=== PATIENT | male | born 1950 | race Caucasian/White ===

== ENCOUNTER 2024-08-10 09:52 | Outpatient (CLI) | payer MEDICARE, SELFPAY ==
--- NOTE | 2024-08-10 10:00 | ECG_ITS ---
Test Date: 2024-08-10 10:23:12 Measurements Intervals [place] Rate: 87 P: 49 [place]: 153 QRS: 44 QRSD: 105 T: 46 QT: 372 QTc: 449 Interpretive Statements SINUS RHYTHM LOW QRS VOLTAGE IN LIMB LEADS POOR R WAVE PROGRESSION BASELINE ARTIFACT- I, II, AVR, AVL, AVF BORDERLINE ECG No previous ECG available for comparison Electronically Signed On 08-10-2024 11:17:10 [employer] by Xander Emerson D.O.
[2024-08-10 11:03] LABS: Anion Gap 10 mmol/L (4-12); Blood Urea Nitrogen 15 mg/dL (9-20); Calcium 8.6 mg/dL (8.4-10.2); Carbon Dioxide 24 mmol/L (22-30); Chloride 105 mmol/L (98-107); Estimated Glomerular Filt Rate > 60; Glucose 144 mg/dL (65-110); Potassium 4.3 mmol/L (3.4-5.0); Sodium 139 mmol/L (137-145)
--- OUTSIDE RECORDS SUMMARY | 2024-08-10 11:17 | XMS_ITS | Referral Summary ---
Author Organization [facility] [address] [facility] Address [address] [place] [address] Care Team Providers Care Meter Engineer Name Role Phone Ritesh Cruz Primary Care Provider [phone] Encounters Date Type Department Care Team Description 06/24/2024 Telephone [facility] Medical [facility] Family Medicine at [address] [address] Ritesh Cruz PA 06/03/2024 Telephone [facility] Family Medicine at [address] [place] [phone] Ritesh Cruz PA Medical Question/Miscellaneous 05/31/2024 9:15 AM GAMES DEALER Office Visit [facility] Medical [facility] Family Medicine at [address] [address] Ritesh Cruz PA Essential hypertension (Primary Dx); 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); Hyperlipidemia, mixed; Left inguinal hernia; Essential hypertension; Paresthesia of both feet 05/19/2024 6:25 AM GAMES DEALER Lab [facility] [address] [place] [address] 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); Essential hypertension; Hyperlipidemia, mixed 05/12/2024 Telephone [facility] Medical [facility] Family Medicine at [address] [place] [address] Ritesh Cruz PA Call Back from Last 3 Months Allergies Active Allergy Reactions Criticality Noted Date Comments Metformin Other (See comments) Low 07/29/2022 GI Upset Medications blood glucose control high,low solutionIndicatio ns:Type 2 diabetes mellitus without complication, without long-term current use of insulin ([facility]) ([facility]) As directed 1 each 0 Active blood-glucose meter miscIndications:T ype 2 diabetes mellitus without complication, without long-term current use of insulin ([facility]) ([facility]) Accu-check marianela plus meter 1 each 0 Active lancets miscIndications:T ype 2 diabetes mellitus without complication, without long-term current use of insulin ([facility]) ([facility]) Daily before Breakfast. Accu-chek softclix lancet 100 each 3 0 Active blood glucose diagnostic stripIndications: Type 2 diabetes mellitus without complication, without long-term current use of insulin ([facility]) ([facility]) Daily before breakfast. 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 Assessment & Plan (02/13/2024 9:30 AM CDT): Chronic conditions stable well controlled at goal Continue amlodipine. Assessment & Plan (11/04/2023 9:10 AM CDT): Chronic conditions stable well controlled at goal Continue amlodipine. Assessment & Plan (05/20/2023 9:26 AM GAMES DEALER): Chronic conditions stable well controlled at goal Continue amlodipine. 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 ([facility]) 09/29/2020 Assessment & Plan (05/31/2024 9:25 AM GAMES DEALER): Chronic uncontrolled with side effects of jardiance D/c jardiance per patient Start mounjaro Assessment & Plan (02/13/2024 9:31 AM CDT): Chronic stable A1c at goal Continue Farxiga Assessment & Plan (11/04/2023 9:04 AM CDT): Chronic and not at goal Start farxiga 5mg Assessment & Plan (05/20/2023 9:27 AM GAMES DEALER): Chronic stable well controlled Continue lifestyle modifications A1c ago Assessment & Plan (02/06/2023 9:26 AM CDT): Chronic condition stable A1c at goal Continue diet lifestyle modifications Assessment & Plan (11/03/2022 9:48 PM CDT): Chronic condition stable A1c at goal Continue diet lifestyle modifications Assessment & Plan (07/29/2022 9:05 AM GAMES DEALER): Chronic stable and well Controlled Continue Hyperlipidemia, mixed 09/29/2020 Assessment & Plan (05/31/2024 9:23 AM GAMES DEALER): Chronic condition stable Hdl at goal Continue repatha D/c zetia Assessment & Plan (02/13/2024 9:31 AM CDT): Chronic condition not at goal Continue Zetia Start Repatha Assessment & Plan (11/04/2023 9:10 AM CDT): Chronic and improved Not at goal Patient refuses statin therapy Continue zetia and red yeast rice Assessment & Plan (05/20/2023 9:27 AM GAMES DEALER): Chronic condition not at goal Continue Zetia Patient refuses to use statin out of fear of side effects. This is even after explanation of reduced cardiovascular events in diabetics on statin presented. Assessment & Plan (02/06/2023 9:26 AM CDT): Chronic condition stable well controlled Continue ezetimibe Assessment & Plan (10/31/2022 9:52 AM CDT): Chronic and not at goal Start zetia Immunizations Immunization Administration Dates Next Due Influenza, Quadrivalent, Hig h Dose, Preservative Free, Intrr 07/29/2022(Deferred: Patient Refused) Influenza, Unspecified 05/31/2024(Deferr ed: Patient Refused),05/20/2023(Deferred: Patient decision),02/20/2022(Deferred: Patient decision),02/20/2022(Deferred: Patient decision),02/14/2022(Deferred: Patient decision) Moderna SARS-CoV-2 Monovalen t Vaccination (12+ YRS) 09/01/2020,08/04/2020 Pneumococcal Conjugate PCV 13 01/23/2019 Pneumococcal Polysaccharide PPV23 01/27/2020 Social History Tobacco Use Types Packs/Day Years Used Date Smoking Tobacco: Never Smokeless Tobacco: Never Alcohol Use Standard Drinks/Week Comments Yes 0 (1 standard drink = 0.6 oz pur e alcohol) maybe once a week Humiliation, Afraid, Rape, and Kick questionnair e Answer Date Recorded Within the last year, have y ou been afraid of your partner or ex-partner? No 04/04/2021 Within the last year, have y ou been humiliated or emotionally abused in other ways by your partner or ex-partner? No Within the last year, have y ou been kicked, hit, slapped, or otherwise physically hurt by your partner or ex-partner? No 04/04/2021 Within the last year, have y ou been raped or forced to have any kind of sexual activity by your partner or ex-partner? No 04/04/2021 Social Connection and Isolation Panel [NHANES] A nswer Date Recorded In a typical week, how many times do you talk on the phone with family, friends, or neighbors? Never 04/04/2021 How often do you get together with friends or re latives? Once a week 04/04/2021 How often do you attend yazidism or shinto serv ices? Never 04/04/2021 Do you belong to any clubs o r organizations such as yazidism groups, unions, fraternal or athletic groups, or school groups? No 04/04/2021 How often do you attend meet ings of the clubs or organizations you belong to? Never 04/04/2021 Are you , , di vorced, , never , or living with a partner? 04/04/2021 AUDIT-C Answer Date Recorded Q1: How often do you have a drink containing alcohol? Never 05/31/2024 Q2: How many drinks containi ng alcohol do you have on a typical day when you are drinking? Patient does not drink Q3: How often do you have si x or more drinks on one occasion? Never 05/31/2024 Overall Financial Resource Strain (CARDIA) Answe r Date Recorded How hard is it for you to pa y for the very basics like food, housing, medical care, and heating? Not hard at all 04/04/2021 PHQ-2 Answer Date Recorded PHQ-2 Total Score (If total score is 3 or more points, staff should administer the PHQ-9) 0 11/04/2023 [facility] - Occupational Stress Questionnaire Answer Date Recorded Do you feel stress - tense, restless, nervous, or anxious, or unable to sleep at night because your mind is troubled all the time - these days? Not at all 04/04/2021 Exercise Vital Sign Answer Date Recorde d On average, how many days pe r week do you engage in moderate to strenuous exercise (like a brisk walk)? 0 days 04/04/2021 On average, how many minutes do you engage in exercise at this level? 0 min 04/04/2021 Hunger Vital Sign Answer Date Recorded Within the past 12 months, y ou worried that your food would run out before you got the money to buy more. Never true 04/04/20 Within the past 12 months, t he food you bought just didn't last and you didn't have money to get more. Never true 04/04/2021 PRAPARE - Transportation Answer Date Re corded In the past 12 months, has l ack of transportation kept you from medical appointments or from getting medications? No 03/17 In the past 12 months, has l ack of transportation kept you from meetings, work, or from getting things needed for daily living? No 04/04/2021 Education Answer Date Recorded What is the highest level of school you have completed or the highest degree you have received? Some college, no degree 11/25/2019 Sex and Gender Information Value Date Recorded Sex Assigned at Not on file Legal Sex Male 8:59 AM GAMES DEALER Gender Identity Male 06/26/2020 12:11 PM GAMES DEALER Sexual Orientation Straight 06/26/2020 12 :11 PM GAMES DEALER Occupation Industry Job Start Date Job End Date Retired Not on file Not on file Not on file Last Filed Vital Signs Vital Sign Reading Time Taken Comments Blood Pressure 126/76 05/31/2024 8:43 AM GAMES DEALER Pulse 103 05/31/2024 8:43 AM GAMES DEALER Temperature 36.5 C (97.7 F) 05/31/2024 8:43 AM GAMES DEALER Respiratory Rate 20 05/31/2024 8:43 AM GAMES DEALER Oxygen Saturation 97% 05/31/2024 8:43 AM GAMES DEALER Inhaled Oxygen Concentration - - Weight 78.2 kg (172 lb 8 oz) 05/31/2024 8:43 AM GAMES DEALER Height 175.3 cm (5' 9.02 ) 05/31/2024 8:43 AM CS T Body Mass Index 25.46 05/31/2024 8:43 AM GAMES DEALER Plan of Treatment Not on file Procedures Procedure Name Priority Date/Time Associated Diagnosis Comments EGFR Routine 05/19/2024 6:34 AM GAMES DEALER 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) Essential hypertension Hyperlipidemia, mixed DIFFERENTIAL AUTO Routine 05/19/2024 6:3 4 AM GAMES DEALER 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) Essential hypertension Hyperlipidemia, mixed COMPREHENSIVE METABOLIC PANEL Routine 05/19/2024 6:34 AM GAMES DEALER 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) Essential hypertension Hyperlipidemia, mixed LIPID PANEL Routine 05/19/2024 6:34 AM GAMES DEALER 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) Essential hypertension Hyperlipidemia, mixed HEMOGLOBIN A1C Routine 05/19/2024 6:34 AM GAMES DEALER 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) Essential hypertension Hyperlipidemia, mixed CBC WITH AUTO DIFFERENTIAL Routine 05/19/2024 6:34 AM GAMES DEALER 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) Essential hypertension Hyperlipidemia, mixed ALBUMIN CREATININE RATIO, URINE Routine 11/04/2023 9:18 AM CDT Type 2 diabetes mellitus without complication, without long-term current use of insulin (CMS/HCC) (HCC) 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 73 m2 Comment: Interpretive Data Reference Interval Normal >/= 90 mL/min/1.73m2 Mildly decreased* 60 - 89 mL/min/1.73m2 Mildly to moderately decreased 45 - 59 mL/min/1.73m2 Moderately to severely decreased 30 - 44 mL/min/1.73m2 Severely decreased 15 - 29 mL/min/1.73m2 Kidney Failure < 15 mL/min/1.73m2 *Relative to young adult level Estimated glomerular filtration rate is determined by the 2020 CKD-EPI equation recommended by the National Kidney Foundation (A Unifying Approach to GFR Estimation: Recommendations of the NKF-ASK Task Force on Reassessing the Inclusion of Race in Diagnosing Kidney Disease, JASN 2020). The CKD-EPI equation should not be used for patients with unstable renal function and has not been validated in children and those over 70. Current interpretive data was last reviewed 2021. Blood 05/19/2024 6:34 AM GAMES DEALER 05/19/2024 6:42 AM GAMES DEALER us Ritesh HERRERA LAB BLOOD ORDERABLES Final Resu lt STACY [address] [facility] Department [place] [address] * Differential, auto (05/19/2024 6:34 AM GAMES DEALER) Neutrophil abs 5.0 1.5 - 6.5 K/cumm Imm gran abs 0.1 0.0 - 0.1 K/cumm [facility] Lymphocyte abs 2.8 0.8 - 3.3 K/cumm STACY Monocyte abs 0.5 0.2 - 0.8 K/cumm [facility] Eosinophil abs 0.2 0.0 - 0.5 K/cumm [facility] Basophil abs 0.1 0.0 - 0.1 K/cumm [facility] Neutrophil pct 58.0 % [facility] Comment: Interpretive Data Percent cell count reference ranges are not reported, since discordance with absolute values may lead to misinterpretation of CBC data. Current Interpretive Data was last revised on 2017. Imm gran pct 0.6 % [facility] Comment: Interpretive Data Percent cell count reference ranges are not reported, since discordance with absolute values may lead to misinterpretation of CBC data. Current Interpretive Data was last revised on 2017. Lymphocyte pct 32.5 % [facility] Comment: Interpretive Data Percent cell count reference ranges are not reported, since discordance with absolute values may lead to misinterpretation of CBC data. Current Interpretive Data was last revised on 2017. Monocyte pct 5.9 % [facility] Comment: Interpretive Data Percent cell count reference ranges are not reported, since discordance with absolute values may lead to misinterpretation of CBC data. Current Interpretive Data was last revised on 2017. Eosinophil pct 2.3 % [facility] Comment: Interpretive Data Percent cell count reference ranges are not reported, since discordance with absolute values may lead to misinterpretation of CBC data. Current Interpretive Data was last revised on 2017. Basophil pct 0.7 % [facility] Comment: Interpretive Data Percent cell count reference ranges are not reported, since discordance with absolute values may lead to misinterpretation of CBC data. Current Interpretive Data was last revised on 2017. Blood 05/19/2024 6:34 AM GAMES DEALER 05/19/2024 6:42 AM GAMES DEALER us Ritesh HERRERA LAB BLOOD ORDERABLES Final Resu lt STACY GALLARDO [address] [facility] Department of Laboratories [place], [place] [id number] * (ABNORMAL) CBC with auto differential (05/19/2024 6:34 AM GAMES DEALER) WBC 8.6 3.8 - 9.9 K/cumm Hgb 18.4(H) 13.0 - 17.5 g/dL [facility] Hct 53.1(H) 38.9 - 50.3 % [facility] Plt 284 150 - 400 K/cumm [facility] MPV 9.7 9.1 - 12.3 fL [facility] RBC 5.83(H) 4.30 - 5.80 M/cumm [facility] MCV 91.1 81.3 - 96.4 fL [facility] MCH 31.6 27.1 - 33.3 pg [facility] MCHC 34.7 32.3 - 35.7 g/dL [facility] RDW CV 13.4 11.1 - 14.9 % [facility] RDW SD 44.8 35.7 - 48.1 fL [facility] NRBC abs 0.00 0.00 - 0.01 K/cumm [facility] Blood 05/19/2024 6:34 AM GAMES DEALER 05/19/2024 6:42 AM GAMES DEALER us Ritesh HERRERA LAB BLOOD ORDERABLES Final Resu lt Performing Organization Address [facility] de Phone Number [address] [employer] [place], [place] [phone] * (ABNORMAL) Hemoglobin A1c (05/19/2024 6:34 AM GAMES DEALER) Hgb A1C 6.7(H) 4.0 - 5.6 % Estimated Average Glucose 146 mg/dL [facility] Comment: The ADA recommends reporting an estimated Average Glucose (eAG) with all Hemoglobin A1c results using the equation derived from a study of 507 normal and diabetic adults. Minority populations were underrepresented and children were not included. (Diabetes Care 31:4184-9940, 2008). The eAG is not equivalent to a fasting glucose. Blood 05/19/2024 6:34 AM GAMES DEALER 05/19/2024 6:42 AM GAMES DEALER us Ritesh HERRERA LAB BLOOD ORDERABLES Final Resu lt Performing Organization Address [facility] Co de Phone Number [facility] [address] Department [place] [address] * (ABNORMAL) Lipid panel (05/19/2024 6:34 AM GAMES DEALER) [facility] Signature Cholesterol 104 30 - 199 mg/dL Comment: Interpretive Data Ages < or = 19 years Acceptable: <170 mg/dL Borderline high: 170-199 mg/dL High: >or= 200 mg/dL Ages > or = 20 years Desirable: <200 mg/dL Borderline high: 200-239 mg/dL High: >or= 240 mg/dL Literature References: 1. Expert Panel on Integrated Guidelines for Cardiovascular Health and Risk Reduction in Children and Adolescents. Pediatrics 2011;128:S213 2. NCEP Expert Panel. Circulation 2004;110:227 Current Interpretive Data was last revised on 2018. Triglycerides 263(H) <=149 mg/dL STACY GALLARDO Comment: Interpretive Data Ages < or = 9 years Acceptable: <75 mg/dL Borderline high: 75-99 mg/dL High: >or= 100 mg/dL Ages 10 to 20 years Acceptable: <90 mg/dL Borderline high: 90-129 mg/dL High: >or= 130 mg/dL Ages > or = 20 years Desirable: <150 mg/dL Borderline high: 150-199 mg/dL High: 200-499 mg/dL Very high: >or= 499 mg/dL Literature References: 1. Expert Panel on Integrated Guidelines for Cardiovascular Health and Risk Reduction in Children and Adolescents. Pediatrics 2011;128:S213 2. NCEP Expert Panel. Circulation 2004;110:227 Current Interpretive Data was last revised on 2018. HDL 49 >=40 mg/dL STACY Comment: Interpretive Data Ages < or = 19 years Acceptable: >45 mg/dL Borderline low: 40-45 mg/dL Low: <40 mg/dL Ages > or = 20 years Desirable: >or= 60 mg/dL Low: <40 mg/dL Literature References: 1. Expert Panel on Integrated Guidelines for Cardiovascular Health and Risk Reduction in Children and Adolescents. Pediatrics 2011;128:S213 2. NCEP Expert Panel. Circulation 2004;110:227 Current Interpretive Data was last revised on 2018. LDL, calculated 17 <=129 mg/dL STACY Comment: Interpretive Data Ages < or = 19 years Acceptable: <110 mg/dL Borderline high: 110-129 mg/dL High: >or= 130 mg/dL Ages > or = 20 years Optimal: <100 mg/dL Near optimal: 100-129 mg/dL Borderline high: 130-159 mg/dL High: >160 mg/dL Calculated using the Sherman LDL-C estimating equation. This equation was implemented on 2024. Prior to this date LDL-C was estimated using the Friedewald equation. Literature References: 1. Expert Panel on Integrated Guidelines for Cardiovascular Health and Risk Reduction in Children and Adolescents. Pediatrics 2011;128:S213 2. NCEP Expert Panel. Circulation 2004;110:227 3. Sherman M et al. FLACA Cardiol. 2020 October 14;5(5):540-548. doi: 10.1001/jamacardio.2020.0013 Current Interpretive Data was last revised on 2024. Non-HDL Cholesterol 55 mg/dL STACY GALLARDO Comment: Interpretive Data Ages < or = 19 years Acceptable: <120 mg/dL Borderline high: 120-144 mg/dL High: >145 mg/dL Ages > or = 20 years When triglycerides are >200 mg/dL, Non-HDL cholesterol is a secondary target of therapy with treatment goals that are 30 mg/dL greater than the LDL cholesterol target. Literature References: 1. Expert Panel on Integrated Guidelines for Cardiovascular Health and Risk Reduction in Children and Adolescents. Pediatrics 2011;128:S213 2. NCEP Expert Panel. Circulation 2004;110:227 Current Interpretive Data was last revised on 2018. Chol/HDL ratio 2 STACY GALLARDO Blood 05/19/2024 6:34 AM GAMES DEALER 05/19/2024 6:42 AM GAMES DEALER us Ritesh HERRERA LAB BLOOD ORDERABLES Final Resu lt STACY GALLARDO [address] [facility] Department [place] [address] * Comprehensive metabolic panel (05/19/2024 6:34 AM GAMES DEALER) Sodium 139 135 - 145 mmol/L Potassium, pl 4.2 3.3 - 4.9 mmol/L [facility] Chloride 102 97 - 110 mmol/L [facility] CO2 27 22 - 32 mmol/L [facility] Anion gap 10 2 - 15 mmol/L [facility] BUN 10 6 - 25 mg/dL [facility] Creatinine 1.07 0.80 - 1.30 mg/dL [facility] Glucose 151 70 - 199 mg/dL [facility] Comment: Interpretive Data Fasting glucose >/= 126 mg/dl is diagnostic for diabetes. Fasting is defined as no caloric intake for at least 8 hours. Fasting glucose between 100 mg/dl to 125 mg/dl is diagnostic of prediabetes. In a patient with classic symptoms of hyperglycemia or hyperglycemic crisis, a random glucose >/= 200 mg/dl is diagnostic for diabetes. In the absence of unequivocal hyperglycemia, results should be confirmed by repeat testing. The classification and Diagnosis of Diabetes Diabetes Care 202; 46: S19-S40. Current interpretive data was last revised 2022. Calcium 9.2 8.5 - 10.3 mg/dL [facility] Bilirubin, total 0.5 0.1 - 1.2 mg/dL [facility] Protein, pl 6.8 6.5 - 8.5 g/dL [facility] Albumin 4.0 3.5 - 5.0 g/dL [facility] Alk phos 82 40 - 130 Units/L [facility] ALT 23 7 - 55 Units/L [facility] AST 19 10 - 50 Units/L [facility] Blood 05/19/2024 6:34 AM GAMES DEALER 05/19/2024 6:42 AM GAMES DEALER us Ritesh HERRERA LAB BLOOD ORDERABLES Final Resu lt [facility] [address] [facility] Department [place] [address] * Albumin Creatinine Ratio, Urine (11/04/2023 9:18 AM CDT) Albumin Ur 14.3 mg/L Comment: Interpretive Data No reference range established. Current interpretive data was last revised 2018. Creatinine Ur 150.0 mg/dL [facility] Comment: Interpretive Data No reference range established. Current interpretive data was last revised 2018. Albumin Creatinine Ratio, Ur 10 1 - 29 mg/g STACY Urine 11/04/2023 9:18 AM CDT 11/04/2023 12:39 PM CDT Ritesh HERRERA LAB URINE ORDERABLES Final Resu lt Performing Organization Address City/[facility] Co de Phone Number [address] [place] [address] * PSA screen (10/07/2023 6:47 AM CDT) PSA-Total 4.51 <=6.20 ng/mL Comment: Interpretive Data AGE SEX REFERENCE INTERVAL 0 minutes-150 years Female None 0 minutes-49 years Male None 50-59 years Male 0-3.90 60-69 years Male 0-5.40 70-79 years Male 0-6.20 80-150 years Male 0-6.20 The Shashank PSA Total assay procedure was used. Results from different manufacturers or methods may not be comparable. Serial testing should be performed using the same method. Current interpretive data last revised 21. Blood 10/07/2023 6:47 AM CDT 10/07/2023 6:52 AM CDT Ritesh HERRERA LAB BLOOD ORDERABLES Final Resu lt Performing Organization Address City/[facility] Co de Phone Number [address] [address] * Diabetic Eye Exam (03/26/2023) Historical Provider HEALTH MAINTENANCE Final Result * Hepatitis C antibody (11/29/2019 6:59 AM CDT) Pathologist [facility] Hep C Ab NONREACT NONREACTIVE [facility] Comment: Siemens ToonTimeaurXP using JEANNETTE (chemiluminescent immunoassay) technology. NONREACTIVE: Antibodies to Hepatitis C not detected. This does not exclude early acute Hepatitis C infection, possibility of exposure to Hepatitis C, antibodies below detection limit, or to lack of antibody reactivity to the antigen used in this assay. EQUIVOCAL: Antibodies to Hepatitis C may or may not be present. Sample to be confirmed by real-time PCR method. REACTIVE: Antibodies to Hepatitis C detected.Sample to be confirmed by real-time PCR method. Blood specimen (specimen) 11/29/2019 6:59 AM CDT 11/29/2019 7:08 AM CDT Narrative Resulting Agency Comment CLI Nick Peña MD LAB MICROBIOLOGY - GENERAL BRITTANIE MOORE Final Result [address] [address], [facility] [phone] from Last 3 Months or Most Recently Relevant to Health Maintenance Insurance [employer] MEDICARE HMO [employer]ICE MEDICARE O HU[employer] MEDICARE HMO Care Teams Meter Engineer Relationship Specialty Start Date End Date Ritesh Cruz PA PCP - General Family Medicine 04/23/22
--- OUTSIDE RECORDS SUMMARY | 2024-08-10 11:17 | XMS_ITS | Clinical Summary ---
Author Organization [address] Address [address] [place] [address] Care Team Providers Care Supervisor [employer] Name Role Phone Ritesh Cruz Primary Care Provider [phone] Allergies Active Allergy Reactions Criticality Noted Date Comments Metformin Other (See comments) Low 07/29/2022 GI Upset Medications blood glucose control high,low solutionIndicatio ns:Type 2 diabetes mellitus without complication, without long-term current use of insulin ([facility]) ([facility]) As directed 1 each 0 Active blood-glucose meter miscIndications:T ype 2 diabetes mellitus without complication, without long-term current use of insulin ([facility]) ([facility]) Accu-check marianela plus meter 1 each 0 Active lancets miscIndications:T ype 2 diabetes mellitus without complication, without long-term current use of insulin ([facility]) ([facility]) Daily before Breakfast. Accu-chek softclix lancet 100 each 3 0 Active blood glucose diagnostic stripIndications: Type 2 diabetes mellitus without complication, without long-term current use of insulin ([facility]) ([facility]) Daily before breakfast. Accu-check marianela plus test [...] with CKD stage 2 and hypertension (CMS/HCC) ([facility]) Inject 0.5 mL (2.5 mg total) under the skin every 7 days 2 mL 2 5 Active Active Problems Problem Noted Date Diagnosed Date Paresthesia of both feet 10/31/2022 Assessment & Plan (10/31/2022 9:58 AM CDT): Chronic not well controlled Start gapabentin 300mg qhs Essential hypertension 09/29/2020 Assessment & Plan (05/31/2024 9:23 AM CUSTOMER QUALITY SPECIALIST): Chronic conditions stable well controlled at goal Continue amlodipine. Assessment & Plan (02/13/2024 9:30 AM CDT): Chronic conditions stable well controlled at goal Continue amlodipine. Assessment & Plan (11/04/2023 9:10 AM CDT): Chronic conditions stable well controlled at goal Continue amlodipine. Assessment & Plan (05/20/2023 9:26 AM CUSTOMER QUALITY SPECIALIST): Chronic conditions stable well controlled at goal Continue amlodipine. 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 (CMS /HCC) 09/29/2020 Assessment & Plan (05/31/2024 9:25 AM CUSTOMER QUALITY SPECIALIST): Chronic uncontrolled with side effects of jardiance D/c jardiance per patient Start mounjaro Assessment & Plan (02/13/2024 9:31 AM CDT): Chronic stable A1c at goal Continue Farxiga Assessment & Plan (11/04/2023 9:04 AM CDT): Chronic and not at goal Start farxiga 5mg Assessment & Plan (05/20/2023 9:27 AM CUSTOMER QUALITY SPECIALIST): Chronic stable well controlled Continue lifestyle modifications A1c ago Assessment & Plan (02/06/2023 9:26 AM CDT): Chronic condition stable A1c at goal Continue diet lifestyle modifications Assessment & Plan (11/03/2022 9:48 PM CDT): Chronic condition stable A1c at goal Continue diet lifestyle modifications Assessment & Plan (07/29/2022 9:05 AM CUSTOMER QUALITY SPECIALIST): Chronic stable and well Controlled Continue Hyperlipidemia, mixed 09/29/2020 Assessment & Plan (05/31/2024 9:23 AM CUSTOMER QUALITY SPECIALIST): Chronic condition stable Hdl at goal Continue repatha D/c zetia Assessment & Plan (02/13/2024 9:31 AM CDT): Chronic condition not at goal Continue Zetia Start Repatha Assessment & Plan (11/04/2023 9:10 AM CDT): Chronic and improved Not at goal Patient refuses statin therapy Continue zetia and red yeast rice Assessment & Plan (05/20/2023 9:27 AM CUSTOMER QUALITY SPECIALIST): Chronic condition not at goal Continue Zetia Patient refuses to use statin out of fear of side effects. This is even after explanation of reduced cardiovascular events in diabetics on statin presented. Assessment & Plan (02/06/2023 9:26 AM CDT): Chronic condition stable well controlled Continue ezetimibe Assessment & Plan (10/31/2022 9:52 AM CDT): Chronic and not at goal Start zetia Encounters Date Type Department Care Team Description 06/24/2024 Telephone [facility] Medical [facility] Family Medicine at [address] [address] Ritesh Cruz PA 06/03/2024 Telephone [facility] Family Medicine at [address] [address] Ritesh Cruz PA Medical Question/Miscellaneous 05/31/2024 9:15 AM CUSTOMER QUALITY SPECIALIST Office Visit [facility] Medicine at [address] [address] Ritesh Cruz PA Essential hypertension (Primary Dx); 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 ([facility]/HCC) (HCC); Hyperlipidemia, mixed; Left inguinal hernia; Essential hypertension; Paresthesia of both feet 05/19/2024 6:25 AM CUSTOMER QUALITY SPECIALIST Lab [facility] Lab [address] [place] [address] 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 ([facility]) ([facility]); Essential hypertension; Hyperlipidemia, mixed 05/12/2024 Telephone [facility] Medicine at [address] [address] Ritesh Cruz PA Call Back from Last 3 Months Immunizations Immunization Administration Dates Next Due Influenza, Quadrivalent, Hig h Dose, Preservative Free, Intrr 07/29/2022(Deferred: Patient Refused) Influenza, Unspecified 05/31/2024(Deferr ed: Patient Refused),05/20/2023(Deferred: Patient decision),02/20/2022(Deferred: Patient decision),02/20/2022(Deferred: Patient decision),02/14/2022(Deferred: Patient decision) Moderna SARS-CoV-2 Monovalen t Vaccination (12+ YRS) 09/01/2020,08/04/2020 Pneumococcal Conjugate PCV 13 01/23/2019 Pneumococcal Polysaccharide PPV23 01/27/2020 Family History Medical History Relation Name Comments No Known Problems Daughter 1 No Known Problems Daughter 2 Gout Father Stroke Father No Known Problems Maternal Grandfather No Known Problems Maternal Grandmother Brain cancer Mother Breast cancer Mother Stroke Mother No Known Problems Paternal Grandfather No Known Problems Paternal Grandmother No Known Problems Son Relation Name Status Comments Daughter 1 Alive Daughter 2 Alive Father Maternal Grandfather Maternal Grandmother Mother Paternal Grandfather Paternal Grandmother Son Alive Social History Tobacco Use Types Packs/Day Years [...] week 04/04/2021 How often do you attend yazidi or confucianism serv ices? Never 04/04/2021 Do you belong to any clubs o r organizations such as yazidi groups, unions, fraternal or athletic groups, or [...] staff should administer the PHQ-9) 0 11/04/2023 [facility] - Occupational Stress Questionnaire Answer Date [...] on file Legal Sex Male 8:59 AM CUSTOMER QUALITY SPECIALIST Gender Identity Male 06/26/2020 12:11 PM CUSTOMER QUALITY SPECIALIST Sexual Orientation Straight 06/26/2020 12 :11 PM CUSTOMER QUALITY SPECIALIST Occupation Industry Job Start Date Job End Date Retired Not on file Not on file Not on file Obstetrics History Last Filed Vital Signs Vital Sign Reading Time Taken Comments Blood Pressure 126/76 05/31/2024 8:43 AM CUSTOMER QUALITY SPECIALIST Pulse 103 05/31/2024 8:43 AM CUSTOMER QUALITY SPECIALIST Temperature 36.5 C (97.7 F) 05/31/2024 8:43 AM CUSTOMER QUALITY SPECIALIST Respiratory Rate 20 05/31/2024 8:43 AM CUSTOMER QUALITY SPECIALIST Oxygen Saturation 97% 05/31/2024 8:43 AM CUSTOMER QUALITY SPECIALIST Inhaled Oxygen Concentration - - Weight 78.2 kg (172 lb 8 oz) 05/31/2024 8:43 AM CUSTOMER QUALITY SPECIALIST Height 175.3 cm (5' 9.02 ) 05/31/2024 8:43 AM CS T Body Mass Index 25.46 05/31/2024 8:43 AM CUSTOMER QUALITY SPECIALIST Plan of Treatment Health Maintenance Due Date Last Done Comments Foot Exam 1950 DTaP/Tdap/Td Vaccine (1 - Tdap) 1961 Hepatitis B Screening 1968 Zoster Vaccine (1 of 2) 2000 Covid-19 Vaccine (3 - season) 2024 09/01/2020, 08/04/2020 Dilated Eye Exam 03/26/2024 03/26/2023, 06/2021, 05/27/2020 Albumin Creatinine Ratio, Urine 11/03/2024 11/04/2023, 08/01/2022 Depression Screening 11/03/2024 11/04/2023, 10/31/2022, 03/12/2022, Additional history exists Fall Risk Assessment 11/03/2024 11/04/2023, 10/31/2022, 03/12/2022, Additional history exists Well Visit 65+ 11/03/2024 11/04/2023, 10/14, 04/04/2021, Additional history exists Hemoglobin A1C 11/17/2024 05/19/2024, 01/14, 10/07/2023, Additional history exists Influenza Vaccine (#1) 2024 Postp oned from 02/15/2024 (Patient declined, but will receive in the future) Lipid Panel 05/19/2025 05/19/2024, 01/14, 10/07/2023, Additional history exists eGFR 05/19/2025 05/19/2024, 01/14, 10/07/2023, Additional history exists Hepatitis C Screening Completed 11/29/2019 Pneumococcal vaccine 65+ Completed 01/27/2020, 01/14 Prostate Cancer Screening-PSA Discontinued 10/07/2023, 08/01/2022, 05/21/2021, Additional history exists Colon Cancer Screening-Colonoscopy Discontinued Procedures Procedure Name Priority Date/Time Associated Diagnosis Comments EGFR Routine 05/19/2024 6:34 AM CUSTOMER QUALITY SPECIALIST 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) Essential hypertension Hyperlipidemia, mixed DIFFERENTIAL AUTO Routine 05/19/2024 6:3 4 AM CUSTOMER QUALITY SPECIALIST 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) Essential hypertension Hyperlipidemia, mixed COMPREHENSIVE METABOLIC PANEL Routine 05/19/2024 6:34 AM CUSTOMER QUALITY SPECIALIST 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) Essential hypertension Hyperlipidemia, mixed LIPID PANEL Routine 05/19/2024 6:34 AM CUSTOMER QUALITY SPECIALIST 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 73 m2 Comment: [...] last reviewed 2021. Blood 05/19/2024 6:34 AM CUSTOMER QUALITY SPECIALIST 05/19/2024 6:42 AM CUSTOMER QUALITY SPECIALIST us Ritesh HERRERA LAB BLOOD ORDERABLES Final Resu lt STACY GALLARDO [id number] [facility] Department [place] [address] * Differential, auto (05/19/2024 6:34 AM CUSTOMER QUALITY SPECIALIST) Neutrophil abs 5.0 1.5 - 6.5 K/cumm Imm gran abs 0.1 0.0 - 0.1 K/cumm STACY Lymphocyte abs 2.8 0.8 - 3.3 K/cumm [facility] Monocyte abs 0.5 0.2 - 0.8 K/cumm [facility] Eosinophil abs 0.2 0.0 - 0.5 K/cumm [facility] Basophil abs 0.1 0.0 - 0.1 K/cumm [facility] Neutrophil pct 58.0 % [facility] Comment: Interpretive Data Percent cell count reference ranges are not reported, since discordance with absolute values may lead to misinterpretation of CBC data. Current Interpretive Data was last revised on 2017. Imm gran pct 0.6 % [facility] Comment: Interpretive Data Percent cell count reference ranges are not reported, since discordance with absolute values may lead to misinterpretation of CBC data. Current Interpretive Data was last revised on 2017. Lymphocyte pct 32.5 % [facility] Comment: Interpretive Data Percent cell count reference ranges are not reported, since discordance with absolute values may lead to misinterpretation of CBC data. Current Interpretive Data was last revised on 2017. Monocyte pct 5.9 % [facility] Comment: Interpretive Data Percent cell count reference ranges are not reported, since discordance with absolute values may lead to misinterpretation of CBC data. Current Interpretive Data was last revised on 2017. Eosinophil pct 2.3 % [facility] Comment: Interpretive Data Percent cell count reference ranges are not reported, since discordance with absolute values may lead to misinterpretation of CBC data. Current Interpretive Data was last revised on 2017. Basophil pct 0.7 % [facility] Comment: Interpretive Data Percent cell count reference ranges are not reported, since discordance with absolute values may lead to misinterpretation of CBC data. Current Interpretive Data was last revised on 2017. Blood 05/19/2024 6:34 AM CUSTOMER QUALITY SPECIALIST 05/19/2024 6:42 AM CUSTOMER QUALITY SPECIALIST us Ritesh HERRERA LAB BLOOD ORDERABLES Final Resu lt STACY [address] [facility] [place] [address] * (ABNORMAL) CBC with auto differential (05/19/2024 6:34 AM CUSTOMER QUALITY SPECIALIST) WBC 8.6 3.8 - 9.9 K/cumm Hgb 18.4(H) 13.0 - 17.5 g/dL [facility] Hct 53.1(H) 38.9 - 50.3 % [facility] Plt 284 150 - 400 K/cumm [facility] MPV 9.7 9.1 - 12.3 fL [facility] RBC 5.83(H) 4.30 - 5.80 M/cumm [facility] MCV 91.1 81.3 - 96.4 fL [facility] MCH 31.6 27.1 - 33.3 pg [facility] MCHC 34.7 32.3 - 35.7 g/dL [facility] RDW CV 13.4 11.1 - 14.9 % [facility] RDW SD 44.8 35.7 - 48.1 fL [facility] NRBC abs 0.00 0.00 - 0.01 K/cumm [facility] Blood 05/19/2024 6:34 AM CUSTOMER QUALITY SPECIALIST 05/19/2024 6:42 AM CUSTOMER QUALITY SPECIALIST us Ritesh HERRERA LAB BLOOD ORDERABLES Final Resu lt STACY [facility] Department [place] [address] * (ABNORMAL) Hemoglobin A1c (05/19/2024 6:34 AM CUSTOMER QUALITY SPECIALIST) Pathologist [facility] Hgb A1C 6.7(H) 4.0 - 5.6 % Estimated Average Glucose 146 mg/dL [facility] Comment: The ADA recommends reporting an estimated Average Glucose (eAG) with all Hemoglobin A1c results using the equation derived from a study of 507 normal and diabetic adults. Minority populations were underrepresented and children were not included. (Diabetes Care 31:8626-1751, 2008). The eAG is not equivalent to a fasting glucose. Blood 05/19/2024 6:34 AM CUSTOMER QUALITY SPECIALIST 05/19/2024 6:42 AM CUSTOMER QUALITY SPECIALIST us Ritesh HERRERA LAB BLOOD ORDERABLES Final Resu lt STACY [address] [facility] [place] [address] * (ABNORMAL) Lipid panel (05/19/2024 6:34 AM CUSTOMER QUALITY SPECIALIST) Cholesterol 104 30 - 199 mg/dL Comment: [...] on 2018. Triglycerides 263(H) <=149 mg/dL STACY Comment: Interpretive Data Ages < [...] 2018. LDL, calculated 17 <=129 mg/dL STACY GALLARDO Comment: Interpretive Data Ages [...] NCEP Expert Panel. Circulation 2004;110:227 3. Sherman Raza et al. FLACA Cardiol. 2019October 14;5(5):540-548. doi: 10.1001/jamacardio.2020.0013 Current Interpretive Data was [...] revised on 2018. Chol/HDL ratio 2 STACY Blood 05/19/2024 6:34 AM CUSTOMER QUALITY SPECIALIST 05/19/2024 6:42 AM CUSTOMER QUALITY SPECIALIST us Ritesh HERRERA LAB BLOOD ORDERABLES Final Resu lt STACY [address] [facility] Department [place] [address] * Comprehensive metabolic panel (05/19/2024 6:34 AM CUSTOMER QUALITY SPECIALIST) Sodium 139 135 - 145 mmol/L Potassium, pl 4.2 3.3 - 4.9 mmol/L [facility] Chloride 102 97 - 110 mmol/L [facility] CO2 27 22 - 32 mmol/L [facility] Anion gap 10 2 - 15 mmol/L [facility] BUN 10 6 - 25 mg/dL [facility] Creatinine 1.07 0.80 - 1.30 mg/dL [facility] Glucose 151 70 - 199 mg/dL [facility] Comment: Interpretive Data Fasting glucose >/= 126 [...] classification and Diagnosis of Diabetes Diabetes Care 2021; 46: S19-S40. Current interpretive data was last revised 2022. Calcium 9.2 8.5 - 10.3 mg/dL [facility] Bilirubin, total 0.5 0.1 - 1.2 mg/dL [facility] Protein, pl 6.8 6.5 - 8.5 g/dL [facility] Albumin 4.0 3.5 - 5.0 g/dL [facility] Alk phos 82 40 - 130 Units/L [facility] ALT 23 7 - 55 Units/L [facility] AST 19 10 - 50 Units/L [facility] Blood 05/19/2024 6:34 AM CUSTOMER QUALITY SPECIALIST 05/19/2024 6:42 AM CUSTOMER QUALITY SPECIALIST us Ritesh HERRERA LAB BLOOD ORDERABLES Final Resu lt [facility] [address] [facility] Department [place] [address] * Albumin Creatinine Ratio, Urine (11/04/2023 9:18 AM CDT) [facility] Albumin Ur 14.3 mg/L Comment: Interpretive Data No reference range established. Current interpretive data was last revised 2018. Creatinine Ur 150.0 mg/dL [facility] Comment: Interpretive Data No reference range established. Current interpretive data was last revised 2018. Albumin Creatinine Ratio, Ur 10 1 - 29 mg/g [facility] Urine 11/04/2023 9:18 AM CDT 11/04/2023 12:39 PM CDT Ritesh HERRERA LAB URINE ORDERABLES Final Resu lt Performing Organization Address [facility] de Phone Number [address] [place] [address] * PSA screen (10/07/2023 6:47 AM CDT) [...] ORDERABLES Final Resu lt Performing Organization Address [facility] de Phone Number [address] [place] [address] * Diabetic Eye Exam (03/26/2023) Historical Provider HEALTH MAINTENANCE Final Result * Hepatitis C antibody (11/29/2019 6:59 AM CDT) Hep C Ab NONREACT NONREACTIVE [facility] Comment: Siemens AdTribaurX using JEANNETTE (chemiluminescent immunoassay) technology. NONREACTIVE: Antibodies [...] MICROBIOLOGY - GENERAL BRITTANIE MOORE Final Result [address] [address], [facility] [phone] from Last 3 Months or Most Recently Relevant to Health Maintenance Insurance [employer] MEDICARE HMO [place] MEDICARE O [employer] MEDICARE HMO [place] [id number] Care Teams Supervisor [employer] Relationship Specialty Start Date End Date Ritesh Cruz PA PCP - General Family Medicine 04/23/22
== END 2024-08-10 09:53 | disposition home or self-care (01) ==
LOC: ANHSURGERY 09:57
PROVIDERS: Anesthesiology; PCP Family Medicine; Visit Provider Surgery
DX: K40.90 Unilateral inguinal hernia, without obstruction or gangrene, not specified as recurrent (principal); I10 Essential (primary) hypertension; E11.9 Type 2 diabetes mellitus without complications
CPT/HCPCS: 36415; 80048; 86850; 86900; 86901; 93005

== ENCOUNTER 2024-08-20 00:35 | Day surgery (SDC) | payer MEDICARE, SELFPAY ==
[2024-08-05 14:59] VITALS: BMI 24.4
--- NOTE | 2024-08-05 15:13 | PC.NURSE ---
Report to the Outpatient Waiting Room, entrance under the green pavilion located off [facility], at time __8:30AM on date ___08/20/24____. Planned Procedure Time: ___10:30AM .? Time changes happen often and if your time is changed the preop area will call you the afternoon before. - You and your visitor will be asked to self-screen and do not enter if you have any COVID symptoms. Please call surgeon if you need to reschedule. - A mask is optional within the hospital at this time. Patients may have clear liquids (water, carbonated beverages, clear teas, apple juice) until 3 hours prior to surgery (7:30AM) with a maximum of 20 ounces. - No food from midnight until time of surgery and no smoking, or chewing tobacco (or any form of nicotine). No chewing gum, candy or mints. Take only the following medications with a SIP of water on the morning of surgery: ___AMLODIPINE DO NOT STOP ANY OF YOUR OTHER PRESCRIPTION MEDICATIONS PRIOR TO SURGERY EXCEPT THE FOLLOWING Hold all vitamins and supplements for 3 days per anesthesiologist.-LAST DOSE 08/16/24. Please no make-up, nail korean, hairspray, perfume, deodorant, or body powder the day of surgery.? No jewelry (including any body piercings) or valuables the day of surgery, leave them at home.? Please take a shower or bath the night before, or the morning of, surgery with an antibacterial soap.? Wear comfortable, loose fitting clothing.? - Jewelry must be removed prior to entering the operating room.? Rings and piercings that are not removed may be cut off. - The hospital will not accept responsibility for valuables.? - Please leave all valuables, including medications, at home the day of surgery. If you are going home after surgery, a licensed sales route driver must drive you home.? - NO public transportation without another adult if you receive anesthesia. - We recommend that an adult stay with you for 24 hours following discharge. - We also recommend that you do not drive, make important decision, drink alcoholic beverages, or take any drugs that were not prescribed by your health care provider for at least 24 hours after your discharge time. Follow any additional instructions given to you from your surgeon. Telephone instructions given to ____PATIENT and asked if any additional questions and then verbalized understanding. Patient advised to call surgeon office or pre surgery nurse liaison [phone] if any additional questions.
[2024-08-20] VITALS (7 sets, daily range): BP systolic 132–150; BP diastolic 72–87; PULSE 86–100; RESP 11–18; TEMP 36.3–36.4; O2SAT 94–99
--- OUTSIDE RECORDS SUMMARY | 2024-08-20 00:39 | XMS_ITS | Referral Summary ---
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); Essential hypertension; Hyperlipidemia, mixed 06/24/2024 Telephone [facility] Family Medicine at [address] [place] [phone] Ritesh Cruz PA 06/03/2024 Telephone [facility] Family Medicine at [address] [phone] Ritesh Cruz PA Medical Question/Miscellaneous 05/31/2024 9:15 AM PHILANTHROPY OFFICER Office Visit [facility] Medical [facility] Family Medicine at [address] [phone] Ritesh Cruz PA Essential hypertension (Primary Dx); 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); Hyperlipidemia, mixed; Left inguinal hernia; Essential hypertension; Paresthesia of both feet from Last 3 Months Allergies Active Allergy Reactions Criticality Noted Date Comments Metformin Other (See comments) Low 07/29/2022 GI Upset Medications blood glucose control high,low solutionIndicatio ns:Type 2 diabetes mellitus without complication, without long-term current use of insulin ([facility]) As directed 1 each 0 Active blood-glucose meter miscIndications:T ype 2 diabetes mellitus without complication, without long-term current use of insulin ([facility]) Accu-check marianela plus meter 1 each 0 Active lancets miscIndications:T ype 2 diabetes mellitus without complication, without long-term current use of insulin ([facility]) Daily before Breakfast. Accu-chek softclix lancet 100 each 3 0 Active blood glucose diagnostic stripIndications: Type 2 diabetes mellitus without complication, without long-term current use of insulin ([facility]) Daily before breakfast. Accu-check marianela plus test [...] DM with CKD stage 2 and hypertension ([facility]) Inject 0.5 mL (2.5 mg total) under the skin every 7 days 2 mL 2 5 Active Active Problems Problem Noted Date Diagnosed Date Paresthesia of both feet 10/31/2022 Assessment & Plan (10/31/2022 9:58 AM CDT): Chronic not well controlled Start gapabentin 300mg qhs Essential hypertension 09/29/2020 Assessment & Plan (05/31/2024 9:23 AM PHILANTHROPY OFFICER): Chronic conditions stable well controlled at goal Continue amlodipine. Assessment & Plan (02/13/2024 9:30 AM CDT): Chronic conditions stable well controlled at goal Continue amlodipine. Assessment & Plan (11/04/2023 9:10 AM CDT): Chronic conditions stable well controlled at goal Continue amlodipine. Assessment & Plan (05/20/2023 9:26 AM PHILANTHROPY OFFICER): Chronic conditions stable well controlled at goal Continue amlodipine. 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 09/14 Assessment & Plan (05/31/2024 9:25 AM PHILANTHROPY OFFICER): Chronic uncontrolled with side effects of jardiance D/c jardiance per patient Start mounjaro Assessment & Plan (02/13/2024 9:31 AM CDT): Chronic stable A1c at goal Continue Farxiga Assessment & Plan (11/04/2023 9:04 AM CDT): Chronic and not at goal Start farxiga 5mg Assessment & Plan (05/20/2023 9:27 AM PHILANTHROPY OFFICER): Chronic stable well controlled Continue lifestyle modifications A1c ago Assessment & Plan (02/06/2023 9:26 AM CDT): Chronic condition stable A1c at goal Continue diet lifestyle modifications Assessment & Plan (11/03/2022 9:48 PM CDT): Chronic condition stable A1c at goal Continue diet lifestyle modifications Assessment & Plan (07/29/2022 9:05 AM PHILANTHROPY OFFICER): Chronic stable and well Controlled Continue Hyperlipidemia, mixed 09/29/2020 Assessment & Plan (05/31/2024 9:23 AM PHILANTHROPY OFFICER): Chronic condition stable Hdl at goal Continue repatha D/c zetia Assessment & Plan (02/13/2024 9:31 AM CDT): Chronic condition not at goal Continue Zetia Start Repatha Assessment & Plan (11/04/2023 9:10 AM CDT): Chronic and improved Not at goal Patient refuses statin therapy Continue zetia and red yeast rice Assessment & Plan (05/20/2023 9:27 AM PHILANTHROPY OFFICER): Chronic condition not at goal Continue Zetia [...] week 04/04/2021 How often do you attend orthodoxy or zoroastrianism serv ices? Never 04/04/2021 Do you belong to any clubs o r organizations such as orthodoxy groups, unions, fraternal or athletic groups, or [...] staff should administer the PHQ-9) 0 11/04/2023 [facility] - Occupational Stress Questionnaire Answer Date Recorded [...] money to buy more. Never true 04/04/20 21 Within the past 12 months, t he [...] on file Legal Sex Male 8:59 AM PHILANTHROPY OFFICER Gender Identity Male 06/26/2020 12:11 PM PHILANTHROPY OFFICER Sexual Orientation Straight 06/26/2020 12 :11 PM PHILANTHROPY OFFICER Occupation Industry Job Start Date Job End Date Retired Not on file Not on file Not on file Last Filed Vital Signs Vital Sign Reading Time Taken Comments Blood Pressure 126/76 05/31/2024 8:43 AM PHILANTHROPY OFFICER Pulse 103 05/31/2024 8:43 AM PHILANTHROPY OFFICER Temperature 36.5 C (97.7 F) 05/31/2024 8:43 AM PHILANTHROPY OFFICER Respiratory Rate 20 05/31/2024 8:43 AM PHILANTHROPY OFFICER Oxygen Saturation 97% 05/31/2024 8:43 AM PHILANTHROPY OFFICER Inhaled Oxygen Concentration - - Weight 78.2 kg (172 lb 8 oz) 05/31/2024 8:43 AM PHILANTHROPY OFFICER Height 175.3 cm (5' 9.02 ) 05/31/2024 8:43 AM CS T Body Mass Index 25.46 05/31/2024 8:43 AM PHILANTHROPY OFFICER Plan of Treatment Not on file Procedures Procedure Name Priority Date/Time Associated Diagnosis Comments EGFR Routine 08/16/2024 6:59 AM PHILANTHROPY OFFICER Essential hypertension 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) Hyperlipidemia, mixed DIFFERENTIAL AUTO Routine 08/16/2024 6:5 9 AM PHILANTHROPY OFFICER Essential hypertension 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) Hyperlipidemia, mixed CBC WITH AUTO DIFFERENTIAL Routine 08/16/2024 6:59 AM PHILANTHROPY OFFICER Essential hypertension 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) Hyperlipidemia, mixed COMPREHENSIVE METABOLIC PANEL Routine 08/16/2024 6:59 AM PHILANTHROPY OFFICER Essential hypertension 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) Hyperlipidemia, mixed LIPID PANEL Routine 08/16/2024 6:59 AM PHILANTHROPY OFFICER Essential hypertension 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) Hyperlipidemia, mixed HEMOGLOBIN A1C Routine 08/16/2024 6:59 AM PHILANTHROPY OFFICER 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) ALBUMIN CREATININE RATIO, URINE Routine 11/04/2023 9:18 AM CDT Type 2 diabetes mellitus without complication, without long-term current use of insulin (HCC) 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 73 m2 Comment: Interpretive Data [...] interpretive data was last reviewed 2021. Blood 08/16/2024 6:59 AM PHILANTHROPY OFFICER 08/16/2024 7:26 AM PHILANTHROPY OFFICER us Ritesh HERRERA LAB BLOOD ORDERABLES Final Resu lt [facility] [address] Department [place] [address] * Differential, auto (08/16/2024 6:59 AM PHILANTHROPY OFFICER) Pathologist [facility] Neutrophil abs 6.0 1.5 - 6.5 K/cumm Imm gran abs 0.0 0.0 - 0.1 K/cumm [facility] Lymphocyte abs 2.6 0.8 - 3.3 K/cumm [facility] Monocyte abs 0.6 0.2 - 0.8 K/cumm [facility] Eosinophil abs 0.1 0.0 - 0.5 K/cumm [facility] Basophil abs 0.1 0.0 - 0.1 K/cumm [facility] Neutrophil pct 64.0 % [facility] Comment: Interpretive Data Percent cell count reference ranges are not reported, since discordance with absolute values may lead to misinterpretation of CBC data. Current Interpretive Data was last revised on 2017. Imm gran pct 0.4 % [facility] Comment: Interpretive Data Percent cell count reference ranges are not reported, since discordance with absolute values may lead to misinterpretation of CBC data. Current Interpretive Data was last revised on 2017. Lymphocyte pct 27.8 % [facility] Comment: Interpretive Data Percent cell count reference ranges are not reported, since discordance with absolute values may lead to misinterpretation of CBC data. Current Interpretive Data was last revised on 2017. Monocyte pct 5.9 % [facility] Comment: Interpretive Data Percent cell count reference ranges are not reported, since discordance with absolute values may lead to misinterpretation of CBC data. Current Interpretive Data was last revised on 2017. Eosinophil pct 1.2 % [facility] Comment: Interpretive Data Percent cell count reference ranges are not reported, since discordance with absolute values may lead to misinterpretation of CBC data. Current Interpretive Data was last revised on 2017. Basophil pct 0.7 % [facility] Comment: Interpretive Data Percent cell count reference ranges are not reported, since discordance with absolute values may lead to misinterpretation of CBC data. Current Interpretive Data was last revised on 2017. Blood 08/16/2024 6:59 AM PHILANTHROPY OFFICER 08/16/2024 7:26 AM PHILANTHROPY OFFICER us Ritesh HERRERA LAB BLOOD ORDERABLES Final Resu lt [facility] [address] Department of Laboratories [place], [place] [id number] * CBC with auto differential (08/16/2024 6:59 AM PHILANTHROPY OFFICER) WBC 9.4 3.8 - 9.9 K/cumm Hgb 17.3 13.0 - 17.5 g/dL [facility] Hct 49.6 38.9 - 50.3 % [facility] Plt 307 150 - 400 K/cumm [facility] MPV 9.8 9.1 - 12.3 fL [facility] RBC 5.44 4.30 - 5.80 M/cumm [facility] MCV 91.2 81.3 - 96.4 fL [facility] MCH 31.8 27.1 - 33.3 pg [facility] MCHC 34.9 32.3 - 35.7 g/dL [facility] RDW CV 13.1 11.1 - 14.9 % [facility] RDW SD 43.2 35.7 - 48.1 fL [facility] NRBC abs 0.00 0.00 - 0.01 K/cumm [facility] Blood 08/16/2024 6:59 AM PHILANTHROPY OFFICER 08/16/2024 7:26 AM PHILANTHROPY OFFICER Ritesh HERRERA LAB BLOOD ORDERABLES Final Resu lt Performing Organization Address [facility] de Phone Number [address] [address] * (ABNORMAL) Hemoglobin A1c (08/16/2024 6:59 AM PHILANTHROPY OFFICER) Hgb A1C 6.2(H) 4.0 - 5.6 % Estimated Average Glucose 131 mg/dL [facility] Comment: The ADA recommends reporting an estimated Average Glucose (eAG) with all Hemoglobin A1c results using the equation derived from a study of 507 normal and diabetic adults. Minority populations were underrepresented and children were not included. (Diabetes Care 31:8864-8431, 2008). The eAG is not equivalent to a fasting glucose. Blood 08/16/2024 6:59 AM PHILANTHROPY OFFICER 08/16/2024 7:26 AM PHILANTHROPY OFFICER us Ritesh HERRERA LAB BLOOD ORDERABLES Final Resu lt Performing Organization Address [facility] de Phone Number [address] [address] * (ABNORMAL) Lipid panel (08/16/2024 6:59 AM PHILANTHROPY OFFICER) Cholesterol 99 30 - 199 mg/dL Comment: Interpretive Data [...] Data was last revised on 2018. Triglycerides 182(H) <=149 mg/dL [facility] Comment: Interpretive Data Ages [...] Data was last revised on 2018. HDL 40 >=40 mg/dL [facility] Comment: Interpretive Data Ages [...] was last revised on 2018. LDL, calculated 30 <=129 mg/dL [facility] Comment: Interpretive Data Ages [...] was last revised on 2024. Non-HDL Cholesterol 59 mg/dL [facility] Comment: Interpretive Data Ages < [...] last revised on 2018. Chol/HDL ratio 2 [facility] Blood 08/16/2024 6:59 AM PHILANTHROPY OFFICER 08/16/2024 7:26 AM PHILANTHROPY OFFICER us Ritesh HERRERA LAB BLOOD ORDERABLES Final Resu lt [facility] [address] Department [place] [address] * (ABNORMAL) Comprehensive metabolic panel (08/16/2024 6:59 AM PHILANTHROPY OFFICER) Sodium 140 135 - 145 mmol/L Potassium, pl 4.3 3.3 - 4.9 mmol/L [facility] Chloride 105 97 - 110 mmol/L [facility] CO2 23 22 - 32 mmol/L [facility] Anion gap 12 2 - 15 mmol/L [facility] BUN 12 6 - 25 mg/dL [facility] Creatinine 1.09 0.80 - 1.30 mg/dL [facility] Glucose 137 70 - 199 mg/dL [facility] Comment: Interpretive Data Fasting glucose >/= 126 [...] interpretive data was last revised 2022. Calcium 8.4(L) 8.5 - 10.3 mg/dL [facility] Bilirubin, total 0.5 0.1 - 1.2 mg/dL [facility] Protein, pl 6.2(L) 6.5 - 8.5 g/dL [facility] Albumin 3.6 3.5 - 5.0 g/dL [facility] Alk phos 74 40 - 130 Units/L [facility] ALT 11 7 - 55 Units/L [facility] AST 16 10 - 50 Units/L [facility] Blood 08/16/2024 6:59 AM PHILANTHROPY OFFICER 08/16/2024 7:26 AM PHILANTHROPY OFFICER us Ritesh HERRERA LAB BLOOD ORDERABLES Final Resu lt Performing Organization Address [facility] Co de Phone Number [address] [place] [address] * Albumin Creatinine Ratio, Urine (11/04/2023 9:18 AM CDT) Albumin Ur 14.3 mg/L Comment: Interpretive Data No reference range established. Current interpretive data was last revised 2018. Creatinine Ur 150.0 mg/dL [facility] Comment: Interpretive Data No reference range established. Current interpretive data was last revised 2018. Albumin Creatinine Ratio, Ur 10 1 - 29 mg/g [facility] Urine 11/04/2023 9:18 AM CDT 11/04/2023 12:39 PM CDT us Ritesh HERRERA LAB URINE ORDERABLES Final Resu lt Performing Organization Address [facility] Co de Phone Number [address] [place] [address] * PSA screen (10/07/2023 6:47 AM CDT) [...] ORDERABLES Final Resu lt Performing Organization Address City/[facility]/ZIP Co de Phone Number [facility] [address] [place] [address] * Diabetic Eye Exam (03/26/2023) Du Provider HEALTH MAINTENANCE Final Result * Hepatitis C antibody (11/29/2019 6:59 AM CDT) Pathologist [facility] Hep C Ab NONREACT NONREACTIVE [facility] Comment: Siemens CentaurXP using JEANNETTE (chemiluminescent immunoassay) technology. NONREACTIVE: Antibodies [...] MICROBIOLOGY - GENERAL BRITTANIE MOORE Final Result Performing Organization Address City/[facility]/ZIP Co de Phone Number [address] [address], [facility] [phone] from Last 3 Months or Most Recently Relevant to Health Maintenance Insurance [employer] HMO Care Teams Fuel Technician Relationship Specialty Start Date End Date Ritesh Cruz PA PCP - General Family Medicine 04/23/22
--- OUTSIDE RECORDS SUMMARY | 2024-08-20 00:39 | XMS_ITS | Clinical Summary ---
Author Organization [address] Address [address] [place] [address] Care Team Providers Care Shipping Clerk/Admin Name Role Phone Ritesh Cruz Primary Care Provider Allergies Active Allergy Reactions Criticality Noted Date Comments Metformin Other (See comments) Low 07/29/2022 GI Upset Medications blood glucose control high,low solutionIndicatio ns:Type 2 diabetes mellitus without complication, without long-term current use of insulin (HCC) As directed 1 each 0 Active blood-glucose meter miscIndications:T ype 2 diabetes mellitus without complication, without long-term current use of insulin (HCC) Accu-check marianela plus meter 1 each 0 Active lancets miscIndications:T ype 2 diabetes mellitus without complication, without long-term current use of insulin (HCC) Daily before Breakfast. Accu-chek softclix lancet 100 each 3 0 Active blood glucose diagnostic stripIndications: Type 2 diabetes mellitus without complication, without long-term current use of insulin (HCC) Daily before breakfast. Accu-check marianela plus test [...] with CKD stage 2 and hypertension (HCC) Inject 0.5 mL (2.5 mg total) under the skin every 7 days 2 mL 2 5 Active Active Problems Problem Noted Date Diagnosed Date Paresthesia of both feet 10/31/2022 Assessment & Plan (10/31/2022 9:58 AM CDT): Chronic not well controlled Start gapabentin 300mg qhs Essential hypertension 09/29/2020 Assessment & Plan (05/31/2024 9:23 AM GAMING WORKER): Chronic conditions stable well controlled at goal Continue amlodipine. Assessment & Plan (02/13/2024 9:30 AM CDT): Chronic conditions stable well controlled at goal Continue amlodipine. Assessment & Plan (11/04/2023 9:10 AM CDT): Chronic conditions stable well controlled at goal Continue amlodipine. Assessment & Plan (05/20/2023 9:26 AM GAMING WORKER): Chronic conditions stable well controlled at goal Continue amlodipine. 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 09/14 Assessment & Plan (05/31/2024 9:25 AM GAMING WORKER): Chronic uncontrolled with side effects of jardiance D/c jardiance per patient Start mounjaro Assessment & Plan (02/13/2024 9:31 AM CDT): Chronic stable A1c at goal Continue Farxiga Assessment & Plan (11/04/2023 9:04 AM CDT): Chronic and not at goal Start farxiga 5mg Assessment & Plan (05/20/2023 9:27 AM GAMING WORKER): Chronic stable well controlled Continue lifestyle modifications A1c ago Assessment & Plan (02/06/2023 9:26 AM CDT): Chronic condition stable A1c at goal Continue diet lifestyle modifications Assessment & Plan (11/03/2022 9:48 PM CDT): Chronic condition stable A1c at goal Continue diet lifestyle modifications Assessment & Plan (07/29/2022 9:05 AM GAMING WORKER): Chronic stable and well Controlled Continue Hyperlipidemia, mixed 09/29/2020 Assessment & Plan (05/31/2024 9:23 AM GAMING WORKER): Chronic condition stable Hdl at goal Continue repatha D/c zetia Assessment & Plan (02/13/2024 9:31 AM CDT): Chronic condition not at goal Continue Zetia Start Repatha Assessment & Plan (11/04/2023 9:10 AM CDT): Chronic and improved Not at goal Patient refuses statin therapy Continue zetia and red yeast rice Assessment & Plan (05/20/2023 9:27 AM GAMING WORKER): Chronic condition not at goal Continue Zetia [...] Department Care Team Description 08/16/2024 6:35 AM GAMING WORKER Lab [facility] [address] [place] [address] 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); Essential hypertension; Hyperlipidemia, mixed 06/24/2024 Telephone [facility] Family Medicine at [address] [place] [address] Ritesh Cruz PA 06/03/2024 Telephone [facility] Family Medicine at [address] [place] [address] Ritesh Cruz PA Medical Question/Miscellaneous 05/31/2024 9:15 AM GAMING WORKER Office Visit [facility] Medicine at [address] [place] [address] Ritesh Cruz PA Essential hypertension (Primary Dx); 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 Never 04/04/2021 Do you belong to any clubs o r organizations such as congregational groups, unions, fraternal or athletic groups, or [...] staff should administer the PHQ-9) 0 11/04/2023 [facility] - Occupational Stress Questionnaire Answer Date Recorded [...] on file Legal Sex Male 8:59 AM GAMING WORKER Gender Identity Male 06/26/2020 12:11 PM GAMING WORKER Sexual Orientation Straight 06/26/2020 12 :11 PM GAMING WORKER Occupation Industry Job Start Date Job End Date Retired Not on file Not on file Not on file Obstetrics History Last Filed Vital Signs Vital Sign Reading Time Taken Comments Blood Pressure 126/76 05/31/2024 8:43 AM GAMING WORKER Pulse 103 05/31/2024 8:43 AM GAMING WORKER Temperature 36.5 C (97.7 F) 05/31/2024 8:43 AM GAMING WORKER Respiratory Rate 20 05/31/2024 8:43 AM GAMING WORKER Oxygen Saturation 97% 05/31/2024 8:43 AM GAMING WORKER Inhaled Oxygen Concentration - - Weight 78.2 kg (172 lb 8 oz) 05/31/2024 8:43 AM GAMING WORKER Height 175.3 cm (5' 9.02 ) 05/31/2024 8:43 AM CS T Body Mass Index 25.46 05/31/2024 8:43 AM GAMING WORKER Plan of Treatment Health Maintenance Due Date [...] 11/03/2024 11/04/2023, 10/14, 04/04/2021, Additional history exists Influenza Vaccine (#1) 2024 Postp oned from 02/15/2024 (Patient declined, but will receive in the future) Hemoglobin A1C 02/16/2025 08/16/2024, 09/2023, 01/28/2024, Additional history exists Lipid Panel 08/16/2025 08/16/2024, 09/2023, 01/28/2024, Additional history exists eGFR 08/16/2025 08/16/2024, 09/2023, 01/28/2024, Additional history exists Hepatitis C Screening Completed 11/29/2019 Pneumococcal vaccine 65+ Completed 01/27/2020, 01/14 Prostate Cancer Screening-PSA Discontinued 10/07/2023, 08/01/2022, 05/21/2021, Additional history exists Colon Cancer Screening-Colonoscopy Discontinued Procedures Procedure Name Priority Date/Time Associated Diagnosis Comments EGFR Routine 08/16/2024 6:59 AM GAMING WORKER Essential hypertension 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) Hyperlipidemia, mixed DIFFERENTIAL AUTO Routine 08/16/2024 6:5 9 AM GAMING WORKER Essential hypertension 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) Hyperlipidemia, mixed CBC WITH AUTO DIFFERENTIAL Routine 08/16/2024 6:59 AM GAMING WORKER Essential hypertension 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 73 m2 Comment: [...] of Race in Diagnosing Kidney Disease, JASN 202). The CKD-EPI equation should not be used for patients with unstable renal function and has not been validated in children and those over 70. Current interpretive data was last reviewed 2021. Blood 08/16/2024 6:59 AM GAMING WORKER 08/16/2024 7:26 AM GAMING WORKER us Ritesh HERRERA LAB BLOOD ORDERABLES Final Resu lt [facility] [address] Department [place] [address] * Differential, auto (08/16/2024 6:59 AM GAMING WORKER) Pathologist [facility] Neutrophil abs 6.0 1.5 - 6.5 K/cumm Imm gran abs 0.0 0.0 - 0.1 K/cumm [facility] Lymphocyte abs 2.6 0.8 - 3.3 K/cumm [facility] Monocyte abs 0.6 0.2 - 0.8 K/cumm [facility] Eosinophil abs 0.1 0.0 - 0.5 K/cumm [facility] Basophil abs 0.1 0.0 - 0.1 K/cumm [facility] Neutrophil pct 64.0 % [facility] Comment: Interpretive Data Percent cell count reference ranges are not reported, since discordance with absolute values may lead to misinterpretation of CBC data. Current Interpretive Data was last revised on 2017. Imm gran pct 0.4 % [facility] Comment: Interpretive Data Percent cell count reference ranges are not reported, since discordance with absolute values may lead to misinterpretation of CBC data. Current Interpretive Data was last revised on 2017. Lymphocyte pct 27.8 % [facility] Comment: Interpretive Data Percent cell count reference ranges are not reported, since discordance with absolute values may lead to misinterpretation of CBC data. Current Interpretive Data was last revised on 2017. Monocyte pct 5.9 % [facility] Comment: Interpretive Data Percent cell count reference ranges are not reported, since discordance with absolute values may lead to misinterpretation of CBC data. Current Interpretive Data was last revised on 2017. Eosinophil pct 1.2 % [facility] Comment: Interpretive Data Percent cell count reference ranges are not reported, since discordance with absolute values may lead to misinterpretation of CBC data. Current Interpretive Data was last revised on 2017. Basophil pct 0.7 % [facility] Comment: Interpretive Data Percent cell count reference ranges are not reported, since discordance with absolute values may lead to misinterpretation of CBC data. Current Interpretive Data was last revised on 2017. Blood 08/16/2024 6:59 AM GAMING WORKER 08/16/2024 7:26 AM GAMING WORKER us Ritesh HERRERA LAB BLOOD ORDERABLES Final Resu lt [facility] [address] Department of Laboratories [place], [place] [id number] * CBC with auto differential (08/16/2024 6:59 AM GAMING WORKER) WBC 9.4 3.8 - 9.9 K/cumm Hgb 17.3 13.0 - 17.5 g/dL [facility] Hct 49.6 38.9 - 50.3 % [facility] Plt 307 150 - 400 K/cumm [facility] MPV 9.8 9.1 - 12.3 fL [facility] RBC 5.44 4.30 - 5.80 M/cumm [facility] MCV 91.2 81.3 - 96.4 fL [facility] MCH 31.8 27.1 - 33.3 pg [facility] MCHC 34.9 32.3 - 35.7 g/dL [facility] RDW CV 13.1 11.1 - 14.9 % [facility] RDW SD 43.2 35.7 - 48.1 fL [facility] NRBC abs 0.00 0.00 - 0.01 K/cumm [facility] Blood 08/16/2024 6:59 AM GAMING WORKER 08/16/2024 7:26 AM GAMING WORKER Ritesh HERRERA LAB BLOOD ORDERABLES Final Resu lt Performing Organization Address [facility] de Phone Number [address] [address] * (ABNORMAL) Hemoglobin A1c (08/16/2024 6:59 AM GAMING WORKER) Hgb A1C 6.2(H) 4.0 - 5.6 % Estimated Average Glucose 131 mg/dL [facility] Comment: The ADA recommends reporting an estimated Average Glucose (eAG) with all Hemoglobin A1c results using the equation derived from a study of 507 normal and diabetic adults. Minority populations were underrepresented and children were not included. (Diabetes Care 31:9711-9768, 2008). The eAG is not equivalent to a fasting glucose. Blood 08/16/2024 6:59 AM GAMING WORKER 08/16/2024 7:26 AM GAMING WORKER Ritesh HERRERA LAB BLOOD ORDERABLES Final Resu lt Performing Organization Address [facility] de Phone Number [address] [place] [address] * (ABNORMAL) Lipid panel (08/16/2024 6:59 AM GAMING WORKER) Cholesterol 99 30 - 199 mg/dL Comment: [...] mg/dL High: >160 mg/dL Calculated using the Whitaker LDL-C estimating equation. This equation was implemented [...] revised on 2024. Non-HDL Cholesterol 59 mg/dL [facility] Comment: Interpretive Data Ages < or = [...] last revised on 2018. Chol/HDL ratio 2 [facility] Blood 08/16/2024 6:59 AM GAMING WORKER 08/16/2024 7:26 AM GAMING WORKER us Ritesh HERRERA LAB BLOOD ORDERABLES Final Resu lt [facility] [address] Department [place] [address] * (ABNORMAL) Comprehensive metabolic panel (08/16/2024 6:59 AM GAMING WORKER) Sodium 140 135 - 145 mmol/L Potassium, pl 4.3 3.3 - 4.9 mmol/L [facility] Chloride 105 97 - 110 mmol/L [facility] CO2 23 22 - 32 mmol/L [facility] Anion gap 12 2 - 15 mmol/L [facility] BUN 12 6 - 25 mg/dL [facility] Creatinine 1.09 0.80 - 1.30 mg/dL [facility] Glucose 137 70 - 199 mg/dL [facility] Comment: Interpretive Data Fasting glucose >/= 126 [...] 2022. Calcium 8.4(L) 8.5 - 10.3 mg/dL [facility] Bilirubin, total 0.5 0.1 - 1.2 mg/dL [facility] Protein, pl 6.2(L) 6.5 - 8.5 g/dL [facility] Albumin 3.6 3.5 - 5.0 g/dL [facility] Alk phos 74 40 - 130 Units/L [facility] ALT 11 7 - 55 Units/L [facility] AST 16 10 - 50 Units/L [facility] Blood 08/16/2024 6:59 AM GAMING WORKER 08/16/2024 7:26 AM GAMING WORKER us Ritesh HERRERA LAB BLOOD ORDERABLES Final Resu lt Performing Organization Address [facility] de Phone Number [address] [employer] [place], [place] [id number] * Albumin Creatinine Ratio, Urine (11/04/2023 9:18 AM CDT) Albumin Ur 14.3 mg/L Comment: Interpretive Data No reference range established. Current interpretive data was last revised 2018. Creatinine Ur 150.0 mg/dL [facility] Comment: Interpretive Data No reference range established. Current interpretive data was last revised 2018. Albumin Creatinine Ratio, Ur 10 1 - 29 mg/g [facility] Urine 11/04/2023 9:18 AM CDT 11/04/2023 12:39 PM CDT Ritesh HERRERA LAB URINE ORDERABLES Final Resu lt Performing Organization Address [facility] de Phone Number [place] [id number] [facility] [place] [address] * PSA screen (10/07/2023 6:47 AM CDT) [...] HERRERA LAB BLOOD ORDERABLES Final Resu lt [facility] [address] Department [place] [address] * Diabetic Eye Exam (03/26/2023) Du Jaffe MD HEALTH MAINTENANCE Final Result * Hepatitis C antibody (11/29/2019 6:59 AM CDT) Hep C Ab NONREACT NONREACTIVE [facility] Comment: Siemens PhloronolaurXP using JEANNETTE (chemiluminescent immunoassay) technology. NONREACTIVE: Antibodies [...] MICROBIOLOGY - GENERAL BRITTANIE MOORE Final Result [address] [address], [facility] [phone] from Last 3 Months or Most Recently Relevant to Health Maintenance Insurance [place] [address] MEDICARE HMO HUMAN CHOICE MEDICARE O [employer] MEDICARE HMO Care Teams Shipping Clerk/Admin Relationship Specialty Start Date End Date Ritesh Cruz PA PCP - General Family Medicine 04/23/22
[2024-08-20] MEDS: ACETAMINOPHEN 500 MG TABLET 1000 MG PO (09:00)
[2024-08-20] MEDS: LACTATED RINGERS 1,000 ML 30 ML IV CONT ×2 (09:05→14:20)
[2024-08-20] MEDS: KETOROLAC 15 MG/ML VIAL (*BKC) IV PUSH (09:10)
[2024-08-20 09:12] LABS: Glucose Point of Care 132 mg/dl (65-105)
--- NOTE | 2024-08-20 09:16 | P.PNAN_ITS ---
Anes - Initial Pre Proc Eval Procedure: Operation Date: 08/20/24 10:30 Proposed Procedures p Robotic Assisted Laparoscopic Bilateral Inguinal Hernia Repair - Ap Montenegro MD Date/Time: 08/20/24 09:16 Surgeon: Ap Montenegro MD Pre Op Diagnosis: Reducible Bilateral Inguinal Hernia Patient Data Age: 73 Gender: M Height: 1.75 m Weight: 75.8 kg Last Vital Signs Temp 97.5 F L 08/20/24 08:40 Pulse 86 08/20/24 08:40 Resp 18 08/20/24 08:40 BP 140/87 08/20/24 08:40 Pulse Ox 99 08/20/24 08:40 O2 Del Method Room Air 08/20/24 08:40 Allergies Allergy/AdvReac Type Severity Reaction Status Date / Time No Known Allergies Allergy Verified 08/20/24 09:12 Home Medications ?Medication ?Instructions ?Recorded ?Confirmed ?Type amlodipine 5 mg tablet (Norvasc) 5 mg PO BID 07/07/24 08/20/24 History evolocumab 140 mg/mL subcutaneous 140 mg subcut [id number] 07/07/24 08/05/24 History syringe (Repatha Syringe) tirzepatide 2.5 mg/0.5 mL 2.5 mg subcut WEEKLY 07/07/24 08/20/24 History subcutaneous pen injector (Mounjaro) ascorbic acid (vitamin C) 1,000 mg 2 g PO DAILY 08/05/24 08/20/24 History capsule aspirin 81 mg tablet,delayed 81 mg PO DAILY 08/05/24 08/20/24 History release (Adult Aspirin Regimen) calcium 600 mg-D3 20 mcg-magnesium 2 tablet PO DAILY 08/05/24 08/20/24 History 50 zv-Gm-maxdul-marlyn-boron tablet (Calcium 600-D3 Plus (mag-zinc)) gabapentin 300 mg capsule 300 mg PO HS 08/05/24 08/20/24 History glucosamine sulfate 2KCl 500 1 tablet PO BID 08/05/24 08/20/24 History mg-msm 166.6 mg-chondroitin 400 mg tablet multivitamin (Daily Multi-Vitamin 1 tablet PO DAILY 08/05/24 08/20/24 History tablet) potassium 99 mg tablet 99 mg PO DAILY 08/05/24 08/20/24 History Laboratory Tests 08/20/24 09:10 POC Capillary Glucose 132 H mg/dl (65-105) Patient hx anesthesia problems: none Family hx anesthesia problems: none Results Review: All pre-operative results and documents have been reviewed as part of the pre- operative evaluation. [facility] Past Medical History Medical History Hypertension Diabetes Family History Family History Mother Breast cancer Cerebrovascular accident Social History Social History Smoking status: Never smoker Current Housing: Decline to Answer Concerned About Future Housing: Decline to Answer Difficulty Paying Gas/Electric Bills: Decline to Answer Difficulty Paying for Meds: Decline to Answer Currently Unemployed: Decline to Answer Education: Decline to Answer Difficulty w/ Childcare or Family Care: Decline to Answer Living arrangements: with family Additional living arrangements comments: Spiritual care concerns: No Anes - Eval Final PreProcedure Day of Procedure 08/20/24 09:16 Patient weight: normal Lungs: normal air movement Airway: Mallampati scale class II Neurological: alert and oriented Last oral intake: >/= 8 hours ASA classification: II Emergent: no Anesthetic plan: proceed Anesthesia type and monitoring: general GIVS and standard monitoring Results Review: All pre-operative results and documents have been reviewed as part of the pre- operative evaluation. HTN, DM w good control. Active w walking longer distances, no cp or sob. Informed Consent: The patient's anesthetic plan and its attendant risks and benefits were di scussed with the patient/family/POA. Questions were solicited and answers provided to the satisfaction of the patient/family/POA.
--- NOTE | 2024-08-20 10:43 | PM.IMHP ---
H&P: HPI History of Present Illness Date/Time: 08/20/24 10:43 Chief Complaint: Bilateral inguinal hernia Narrative: Mr. Pelletier presents to the office at the request of SHARON Freed for evaluation. Patient reports a 7-month history of left inguinal bulging and occasional associated mild pressure. Bulge is reducible when lying down and with manual reduction. No abdominal distension, nausea, vomiting or change in bowel habits. No previous abdominal surgeries. Review of Systems Review of Systems: The remainder of the review of systems to include constitutional, HEENT, cardiovascular, respiratory, GI, , integumentary, musculoskeletal, endocrine, immunologic, hematologic, psychiatric, and neurologic are all negative except for which is mentioned above in the HPI. COUNT INCLUDES [facility] Past Medical History Medical History Hypertension Diabetes Family History Family History Mother Breast cancer Cerebrovascular accident Social History Social History Smoking status: Never smoker Current Housing: Decline to Answer Concerned About Future Housing: Decline to Answer Difficulty Paying Gas/Electric Bills: Decline to Answer Difficulty Paying for Meds: Decline to Answer Currently Unemployed: Decline to Answer Education: Decline to Answer Difficulty w/ Childcare or Family Care: Decline to Answer Living arrangements: with family Additional living arrangements comments: Spiritual care concerns: No Meds Home Medications and Allergies Home Medications ?Medication ?Instructions ?Recorded ?Confirmed ?Type amlodipine 5 mg tablet (Norvasc) 5 mg PO BID 07/07/24 08/20/24 History evolocumab 140 mg/mL subcutaneous 140 mg subcut [id number] 07/07/24 08/05/24 History syringe (Repatha Syringe) tirzepatide 2.5 mg/0.5 mL 2.5 mg subcut WEEKLY 07/07/24 08/20/24 History subcutaneous pen injector (Kelseyro) ascorbic acid (vitamin C) 1,000 mg 2 g PO DAILY 08/05/24 08/20/24 History capsule aspirin 81 mg tablet,delayed 81 mg PO DAILY 08/05/24 08/20/24 History release (Adult Aspirin Regimen) calcium 600 mg-D3 20 mcg-magnesium 2 tablet PO DAILY 08/05/24 08/20/24 History 50 xl-Th-tawbpr-marlyn-boron tablet (Calcium 600-D3 Plus (mag-zinc)) gabapentin 300 mg capsule 300 mg PO HS 08/05/24 08/20/24 History glucosamine sulfate 2KCl 500 1 tablet PO BID 08/05/24 08/20/24 History mg-msm 166.6 mg-chondroitin 400 mg tablet multivitamin (Daily Multi-Vitamin 1 tablet PO DAILY 08/05/24 08/20/24 History tablet) potassium 99 mg tablet 99 mg PO DAILY 08/05/24 08/20/24 History Allergies Allergy/AdvReac Type Severity Reaction Status Date / Time No Known Allergies Allergy Verified 08/20/24 09:12 Vital Signs Vital Signs - 24 hr 08/20/24 08:40 Temperature 36.4 C L Pulse Rate 86 Respiratory Rate 18 Blood Pressure 140/87 Pulse Oximetry 99 Oxygen Delivery Room Air Exam Const: General: comfortable and no acute distress HENMT: Ears: TM's normal bilaterally Face/Nose/Sinus: Normal nares present Mouth: Yes moist mucous membranes Eyes: General: appearance normal, both eyes and all related structures Sclera: sclerae normal Pupils: Equal, round and reactive pupils present EOM: EOMs intact bilaterally Neck: Neck: supple and no JVD Resp: Effort & Inspection: normal respiratory effort Auscultation: clear to auscultation bilaterally Cardio: Rate: regular rate Rhythm: regular rhythm GI: GI Palp: Yes Soft to palpation, No Firmness to palpation present (GI), No Tenderness to palpation present (GI), No Guarding due to palpation present (GI) and No Hernia present : Other: Large left inguinal hernia that is manually reducible. Smaller right inguinal hernia also reducible. Extends to top of the the scrotum. No testicular masses Skin: General skin exam: normal color and no rashes or lesions noted Neuro: General: gait normal Speech: normal speech Motor exam (neuro): 5/5 motor strength present throughout Sensory Exam: normal sensation Extrem: General: normal to inspection Psych: Mental Status: mental status grossly normal Affect: normal affect Assessment and Plan Assessment and plan (1) Bilateral inguinal hernia: Code(s): K40.20 - Bilateral inguinal hernia, without obstruction or gangrene, not specified as recurrent Status: Acute Assessment and Plan: Prior to the patients visit in the office, I reviewed the office note from SHARON Morgan. Patient has easily palpable reducible bilateral inguinal hernias - left > right. I've recommended proceeding with robotic assisted laparoscopic bilateral inguinal hernia repair with mesh to be performed in the OR under general anesthesia as an outpatient. The surgery was explained in detail including detailed description, risks, benefits, the use of mesh, post-operative restrictions, recovery, and expected outcome. He would like to proceed in the near future as discussed.
--- NOTE | 2024-08-20 10:46 | WPDHPUPDATE1 ---
History and Physical Update Update Date/Time: 08/20/24 10:46 History and Physical has been reviewed, including an updated exam of the patient. There are NO changes in the patient's condition. Risks, benefits, and alternatives have been discussed and questions answered. Patient agrees to proceed with procedure.
[2024-08-20] MEDS: ceFAZolin 2 GM/D5W 50 ML 2 GM/50 ML BAG IVPB (11:17)
[2024-08-20] MEDS: BUPivacaine HCL 0.5% 10 ML AMP 30 ML INFILTRATE (12:07)
[2024-08-20] MEDS: LIDO 1%/EPINEPHRINE 1:100,000 50 ML VIAL 30 ML INFILTRATE (12:08)
--- NOTE | 2024-08-20 14:05 | PM.OP ---
Procedure Note - Brief Procedure Note - Brief Date of procedure: 08/20/24 Reducible Bilateral Inguinal Hernia Post-op diagnosis: Same Procedure performed: Robotic assisted laparoscopic bilateral inguinal hernia repair with Bard 3D mid weight mesh Surgeon: Ap Montenegro MD Artificial Teeth Inspector: Bong MAI Anesthesia: GETA Implants: Bard 3D mid weight mesh extra-large bilateral groin Estimated blood loss (mL): 30 Drains: No Packing: No Pathology: None sent Complications: No immediate complications Condition: Stable Disposition: PACU
[2024-08-20 14:28] LABS: Glucose Point of Care 177 mg/dl (65-105)
[2024-08-20] MEDS: oxyCODONE HCL (*CRX) 5 MG TAB IR PO (15:42)
--- NOTE | 2024-08-21 09:10 | P.OP_ITS ---
Procedure Note - Detailed Date of Procedure 08/20/24 Pre-op Diagnosis Reducible Bilateral Inguinal Hernia Post-op Diagnosis Same Procedure Performed Robotic assisted laparoscopic bilateral inguinal hernia repair with Bard 3D mid weight mesh Surgeon Ap Montenegro MD Balancing Machine Set Up Worker Bong Lan, PAU Anesthesia General Indications Patient is a 73-year-old gentleman presented with a large left inguinal hernia. This was enlarging and becoming symptomatic with soreness. On exam is also noted to have a moderately large right inguinal hernia. He presents now for bilateral robotic assisted laparoscopic inguinal hernia repair with mesh. Findings Initially there was omentum within the large left inguinal hernia sac. With the patient placed in Trendelenburg position the omentum spontaneously came out of the hernia sac. He had a very large indirect inguinal hernia with the hernia sac extending down into the scrotum. On the right side he had a moderately large pantaloon hernia defect with a larger direct component and a smaller indirect component. Description of Procedure After informed consent was obtained patient was brought to the operating room was placed supine position and general endotracheal anesthesia was administered. The abdomen and bilateral groin regions were then prepped and draped usual sterile fashion. A time-out was then performed correctly identifying the patie nt as well as procedure to be performed. Site marking was not needed as this was a bilateral procedure. He was given perioperative IV antibiotics. I 1st started by entered the abdomen left upper quadrant utilizing a meter Optiview port. Once inside the abdomen insufflated to adequate pneumoperitoneum of 15mmHg of CO2. The patient was then placed in the head-down Trendelenburg position along the bowel and the omentum the fall out of the pelvis. He initially had portions of the omentum within the left inguinal hernia which spontaneously reduced with the patient in the Trendelenburg position. I could see the had a large indirect left inguinal hernia. On the right side he had a moderately large pantaloon inguinal hernia with a larger direct defect and a smaller indirect defect. I then placed additional 8mm trocar ports across the mid abdomen and then switched out the 5mm left upper trocar port to a 10mm bedside assistant operations manager trocar port. The [employer] robot was then brought to the [facility] ient's bedside and docked to the robotic ports. Robotic instruments were then advanced into the abdomen under direct visualization. I then scrubbed out the procedure sent down the robotic console to perform the dissection. I 1st started by making a preperitoneal flap starting across the lower abdomen from essentially the left anterior suprailiac spine to the right anterior suprailiac spine. Once I dissected into the space I completely divided the median umbilical ligament and released the bladder from the anterior abdominal wall. I dissected this avascular plane all the way down to the pubic symphysis and dissected out both pubic tubercles bilaterally. Continued my dissection more laterally on the right side 1st. I then dissected over to the direct defect and reduce the peritoneum out of the pseudo sac. I continued laterally identified the inferior epigastric vessels these were preserved without injury. I then dissected the smaller indirect component of the hernia at of the inguinal canal. I preserved the vas deferens and testicular vessels and these without injury. I then dissected the peritoneum on the right side back up onto the psoas muscle. Identified the testicular vessels and vas deferens and as they I felt that I had on the proximal dissection of the hernia sac to be able to place a extra-large piece of mesh without rolling up the proximal edge with closing the peritoneum. I then switched my attention towards the left side. Again I dissected the peritoneum back the pubic tubercle and there was no direct defect. There was small amount of fatty tissue within the femoral canal which was dissected out without difficulty. I then identified the inferior epigastric vessels and these were preserved without injury. I then encountered the very l arge indirect left inguinal hernia sac which was dissected free of the cord structures. The very distal portion of the sac was densely adherent to the tunica albuginea and so rather than the liver the left testicle up into the abdomen I decided to abandon a small portion of distal hernia sac. Ensuring that the vas deferens and testicular vessels from the cord were protected I then divided the hernia sac distally leaving a portion of it behind. I then everted the hernia sac and then dissected the peritoneum until it up onto the left psoas muscle. I then dissected the space of Retzius for couple cm to make sure the bladder was dissected off of the pubic symphysis and so that the edges of the mesh could extend down into the space of Retzius. I then imbricated the pseudo sac on the right direct inguinal hernia. This done with a running absorbable 2- 0 V lock suture. I then chose extra-large pieces of Bard 3D mid weight mesh for the repairs. A piece was chosen for each side which was conforming for each side. Both pieces of mesh were then placed into the dissected spaces bilaterally and the medial portions of both meshes overlapped in the middle overlying the pubic symphysis. Both pieces of mesh extended down into the space of Retzius for 1 to 2 cm. I then secured both pieces of mesh to the tissues around the pubic tubercle. The 2 meshes were all secured together in the m idline. This is all done with 2-0 Vicryl sutures. Laterally both pieces of mesh were then secured to the muscle anterior and medial to the bilateral anterior suprailiac spines. Additional 2-0 Vicryl suture was placed at the closed right direct space and the potential left direct space. Both pieces of mesh laid out very nicely without any tension. I then proceeded to close the peritoneal flap by placement of a running absorbable 2-0 Vicryl suture. The median umbilical ligament was recreated and the bladder was responded. The hole in the large left inguinal hernia sac was then closed with a running 2-0 absorbable V lock suture. The hernia sac was then also tacked up with the closure of the peritoneal flap. A small hole in the right indirect inguinal hernia sac was simply closed with a 2-0 Vicryl suture. At this point I then sure there was no injury to the bowel and no bleeding. I then proceeded to have the [employer] robot undocked from the patient's bedside and the instruments removed from the abdomen. I then scrubbed back into the procedure and proceeded to close the 8mm umbilical trocar defect and the 10mm left upper quadrant trocar port fascial defect with a 0 Vicryl suture at the fascial level after removal of the ports. The abdomen was allowed to decompress and then I closed all the port sites at the skin level utilizing a running subcuticular 4-0 Monocryl suture. The incisions were then cleaned and then skin glue was applied. The patient tolerated the procedure well no complications. All sponges, needles, and instrument counts were correct at the end procedure. EBL was _30__cc. The patient was awakened and taken to recovery in stable and satisfactory condition. Implants Bard 3D mid weight mesh extra-large x2 transabdominal preperitoneal placement bilateral groins. Estimated Blood Loss 30 Drains No Packing No Pathology None sent Complications No immediate complications Condition Stable Disposition PACU [facility] Billing Surgery - Charge Forward: Surgery Billing
== END 2024-08-20 16:28 | disposition home or self-care (01) ==
PROVIDERS: PCP Family Medicine; Visit Provider Surgery
PROC: 8E0Y4CZ Robotic Assisted Procedure of Lower Extremity, Percutaneous Endoscopic Approach (ICD-10-PCS; CPT 49650; principal; 2024-08-20 10:30)
DX: K40.20 Bilateral inguinal hernia, without obstruction or gangrene, not specified as recurrent (principal); I10 Essential (primary) hypertension; E11.9 Type 2 diabetes mellitus without complications; Z79.85 Long-term (current) use of injectable non-insulin antidiabetic drugs; Z79.82 Long term (current) use of aspirin; Z80.3 Family history of malignant neoplasm of breast; Z82.49 Family history of ischemic heart disease and other diseases of the circulatory system
CPT/HCPCS: 49650; S2900; 82948; A9270; C1781; J0690; J1100; J1885; J2003; J2004; J2405; J2704; J7030; J7120